=== PATIENT | male | born 1950 | race Caucasian/White ===

== ENCOUNTER 2020-11-24 11:31 | Emergency (ER) | payer MEDICARE ==
--- NOTE | 2020-11-24 12:35 | EDM.PDOC ---
ED HPI GENERAL MEDICAL PROBLEM - General Chief Complaint: Lower Extremity Injury/Pain Stated Complaint: GOUT Time Seen by Provider: 11/24/20 12:08 Source of Information: Reports: Patient History Limitations: Reports: No Limitations - History of Present Illness INITIAL COMMENTS - FREE TEXT/NARRATIVE: The patient presents with left foot swelling and gout flair. He has a history of gout and take allopurinol daily. He is not sure what triggered the attack. He does not drink and he watches what he eats. He was most concerned for an area of redness to the anterior ankle. He has no fever, chills, cough, chest pain, shortness of breath, abdominal pain, nausea or vomiting. Onset: Gradual Duration: Day(s): Location: Reports: Lower Extremity, Left (foot) Quality: Reports: Sharp Severity: Moderate Improves with: Reports: Immobilization Worsens with: Reports: Movement Context: Denies: Trauma Associated Symptoms: Reports: No Other Symptoms Left Foot Pain Score (Numeric/FACES): 10 - Related Data Allergies Allergy/AdvReac Type Severity Reaction Status Date / Time No Known Allergies Allergy Verified 11/24/20 12:02 Home Meds: Home Meds Hydrocodone/Acetaminophen [Hydrocodone-Acetamin 5-325 mg] 1 - 2 each PO Q6H PRN #10 tablet 11/24/20 [Rx] Past Medical History Cardiovascular History: Reports: Hypertension Musculoskeletal History: Reports: Gout Social & Family History - Tobacco Use Tobacco Use Status *Q: Never Tobacco User Second Hand Smoke Exposure: No - Caffeine Use Caffeine Use: Reports: Soda, Tea Review of Systems - Review of Systems Review Of Systems: See Below Constitutional: Reports: No Symptoms Eyes: Reports: No Symptoms Ears: Reports: No Symptoms Nose: Reports: No Symptoms Mouth/Throat: Reports: No Symptoms Respiratory: Reports: No Symptoms Cardiovascular: Reports: No Symptoms GI/Abdominal: Reports: No Symptoms Genitourinary: Reports: No Symptoms Musculoskeletal: Reports: Foot Pain (swelling and pain) ED EXAM, GENERAL - Physical Exam Exam: See Below Exam Limited By: No Limitations General Appearance: Alert, No Apparent Distress Ears: Normal External Exam Nose: Normal Inspection Head: Atraumatic, Normocephalic Neck: Normal Inspection Respiratory/Chest: No Respiratory Distress Extremities: Other (Mild edema and pain upon palpation to the ball of his foot. No erythema noted. There is some vericose veins with petichae around them to the left anterior ankle.) Course - Vital Signs Last Recorded V/S: Last Vital Signs Temp 98.8 F 11/24/20 11:58 Pulse 94 11/24/20 11:58 Resp 18 11/24/20 11:58 BP 174/105 H 11/24/20 11:58 Pulse Ox 100 11/24/20 11:58 - Re-Assessments/Exams Free Text/Narrative Re-Assessment/Exam: 11/24/20 12:35 I will give him something for pain. He did not want any steroids. Departure - Departure Time of Disposition: 12:35 Disposition: Home, Self-Care 01 Condition: Good Clinical Impression: Gout attack Qualifiers: Gout site: foot Gout etiology: other secondary cause Laterality: left Qualified Code(s): M10.472 - Other secondary gout, left ankle and foot - Discharge Information *PRESCRIPTION DRUG MONITORING PROGRAM REVIEWED*: Not Applicable *COPY OF PRESCRIPTION DRUG MONITORING REPORT IN PATIENT PETER: Not Applicable Prescriptions: Hydrocodone/Acetaminophen [Hydrocodone-Acetamin 5-325 mg] 1 - 2 each PO Q6H PRN #10 tablet PRN Reason: Pain Referrals: Kathy Trejo, [employer] [Primary Care Provider] - 1 Week Additional Instructions: Keep taking your medications as prescribed. Take motrin or aleve for pain. If that does not help, try the hydrocodone. Follow up with your doctor as needed. Please return if you are worse. Sepsis Event Note (ED) - Focused Exam Vital Signs: Vital Signs Temp Pulse Resp BP Pulse Ox 11/24/20 11:58 98.8 F 94 18 174/105 H 100
== END 2020-11-24 12:50 | disposition home or self-care (01) ==
LOC: JD.ED 11:31
DX: M10.472 Other secondary gout, left ankle and foot (principal); I10 Essential (primary) hypertension
CPT/HCPCS: 99283

== ENCOUNTER 2021-05-08 08:45 | Emergency (ER) | payer MEDICARE | END 2021-05-08 11:35 | disposition home or self-care (01) | LOC: JD.ED 08:45 | DX: L03.115 Cellulitis of right lower limb (principal); I87.2 Venous insufficiency (chronic) (peripheral); I10 Essential (primary) hypertension; M10.9 Gout, unspecified; Z79.899 Other long term (current) drug therapy; Z87.891 Personal history of nicotine dependence | CPT/HCPCS: 36415; 80053; 85025; 85610; 93970; 93970-26; 99284-25 ==

== ENCOUNTER 2021-10-01 10:42 | Emergency (ER) | payer MEDICARE ==
[2021-10-01] MEDS ORDERED: Sodium Chloride 0.9% 10 ML Syringe FLUSH PRN (11:50)
[2021-10-01] MEDS ORDERED: Sodium Chloride 0.9% 1,000 ML IV STA (12:54)
[2021-10-01] MEDS ORDERED: cefTRIAXone 2 GM in Sodium Chloride 0.9% 100 ML IV ONE (12:58)
[2021-10-01 13:14] LABS: ESTIMATED GFR 54 mL/min (>60)
== END 2021-10-01 14:36 | disposition home or self-care (01) ==
LOC: JD.ED 10:42
DX: N39.0 Urinary tract infection, site not specified (principal); L30.9 Dermatitis, unspecified; I10 Essential (primary) hypertension; Z79.899 Other long term (current) drug therapy
CPT/HCPCS: 36415; 51798; 80053; 81001; 83605; 85007; 85027; 85610; 86140; 87040; 87086; 87088; 87186; 96361; 96365; 99283; J0696; J3490; J7030

== ENCOUNTER 2022-01-10 10:40 | Emergency (ER) | payer MEDICARE ==
[2022-01-10] MEDS ORDERED: diphenhydrAMINE 50 MG/ML SDV IM ONE (11:09)
[2022-01-10] MEDS ORDERED: Dexamethasone 10 MG/ML SDV IM ONE (11:09)
== END 2022-01-10 11:57 | disposition home or self-care (01) ==
LOC: JD.ED 10:40
DX: L25.9 Unspecified contact dermatitis, unspecified cause (principal); I10 Essential (primary) hypertension; Z79.899 Other long term (current) drug therapy
CPT/HCPCS: 96372; 99282; J1100; J1200

== ENCOUNTER 2022-08-09 12:37 | Emergency (ER) | payer OTHER, MEDICARE ==
[2022-08-09] MEDS ORDERED: Acetaminophen/oxyCODONE 325-5 MG Tab PO ONE ×2 (13:05→13:50)
[2022-08-09] MEDS ORDERED: Ondansetron 4 MG Tab.DIS PO ONE (13:07)
[2022-08-09] MEDS ORDERED: Lidocaine 1% 10 ML MDV INJECT ONE (13:48)
== END 2022-08-09 14:30 | disposition home or self-care (01) ==
LOC: JD.ED 12:37
DX: S06.5X0A Traumatic subdural hemorrhage without loss of consciousness, initial encounter (principal); S01.01XA Laceration without foreign body of scalp, initial encounter; I10 Essential (primary) hypertension; Z79.899 Other long term (current) drug therapy; W10.1XXA Fall (on)(from) sidewalk curb, initial encounter
CPT/HCPCS: 12002; 70450; 73030; 93005; 99284; A9270; 93010; 99283; J3490

== ENCOUNTER 2024-04-10 10:11 | Emergency (ER) | payer MEDICAID, MEDICARE ==
[2024-04-10 11:52] LABS: BASOPHILS ABSOLUTE AUTO 0.1 K/mm3 (0.0-0.2); BASOPHILS PERCENT AUTO 0.6 % (0.0-1.0); EOSINOPHILS ABSOLUTE AUTO 0.3 K/mm3 (0.0-0.4); EOSINOPHILS PERCENT AUTO 3.1 % (0.0-6.0); HEMATOCRIT 39.2 % (42.0-52.0); HEMOGLOBIN 12.2 gm/dl (14.0-18.0); IMMATURE GRAN ABSOLUTE AUTO 0.03 K/mm3 (0.00-0.05); IMMATURE GRAN PERCENT AUTO 0.3 % (0.0-0.4); LYMPHOCYTES ABSOLUTE AUTO 1.1 K/mm3 (1.0-4.8); LYMPHOCYTES PERCENT AUTO 12.8 % (24.0-44.0); MEAN CORPUSCULAR HEMOGLOBIN 29.8 pg (28.0-32.0); MEAN CORPUSCULAR HGB CONC 31.1 g/dl (32.0-36.0); MEAN CORPUSCULAR VOLUME 95.8 fl (83.0-99.0); MEAN PLATELET VOLUME 10.8 fl (9.4-12.4); MONOCYTES PERCENT AUTO 11.7 % (0.0-8.0); NEUTROPHILS ABSOLUTE AUTO 6.3 K/mm3 (1.8-7.7); NEUTROPHILS PERCENT AUTO 71.5 % (41.0-71.0); PLATELET COUNT,PLT 130 K/mm3 (150-400); RED BLOOD CELL COUNT 4.09 M/mm3 (4.52-5.90); WHITE BLOOD CELL COUNT,WBC 8.81 K/mm3 (3.9-11.3)
[2024-04-10 12:09] LABS: INR 1.04
[2024-04-10 12:11] LABS: PTT,PARTIAL THROMBOPLSTIN TIME 26.8 SECONDS (21.7-31.4)
[2024-04-10] MEDS: cefTRIAXone 2 GM Vial IVPUSH ONE (12:20)
[2024-04-10 12:47] LABS: A/G RATIO 0.7 (1-2); ALBUMIN 2.7 g/dl (3.4-5.0); ANION GAP 15.2 (5-15); BILIRUBIN TOTAL 0.6 mg/dL (0.2-1.0); BUN/CREATININE RATIO 14.3 (14-18); CALCIUM 8.8 mg/dL (8.5-10.1); CREATININE 2.3 mg/dL (0.7-1.3); EST CRCL DRUG DOSING (CG) 26.58 mL/min; POTASSIUM,K 4.2 mEq/L (3.5-5.1); PROTEIN TOTAL,TP 6.8 g/dl (6.4-8.2)
[2024-04-10 13:06] LABS: LACTIC ACID 1.2 mmol/L (0.4-2.0)
== END 2024-04-10 13:55 | disposition left against medical advice (07) ==
LOC: JD.ED 10:11
DX: L03.115 Cellulitis of right lower limb (principal); L03.116 Cellulitis of left lower limb; I13.0 Hypertensive heart and chronic kidney disease with heart failure and stage 1 through stage 4 chronic kidney disease, or unspecified chronic kidney disease; I50.9 Heart failure, unspecified; N18.9 Chronic kidney disease, unspecified; Z79.899 Other long term (current) drug therapy
CPT/HCPCS: 36415; 71045; 80053; 83605; 83880; 84484; 85025; 85610; 85730; 87040; 87428; 93005; 96374; 99285; J0696

== ENCOUNTER 2024-04-23 15:21 | Inpatient (IN) | payer MEDICARE, MEDICAID ==
[2024-04-23 16:28] LABS: BASOPHILS PERCENT AUTO 0.5 % (0.0-1.0); EOSINOPHILS ABSOLUTE AUTO 0.3 K/mm3 (0.0-0.4); EOSINOPHILS PERCENT AUTO 3.3 % (0.0-6.0); HEMATOCRIT 43.9 % (42.0-52.0); HEMOGLOBIN 13.3 gm/dl (14.0-18.0); IMMATURE GRAN ABSOLUTE AUTO 0.03 K/mm3 (0.00-0.05); IMMATURE GRAN PERCENT AUTO 0.4 % (0.0-0.4); LYMPHOCYTES ABSOLUTE AUTO 1.4 K/mm3 (1.0-4.8); LYMPHOCYTES PERCENT AUTO 18.4 % (24.0-44.0); MEAN CORPUSCULAR HGB CONC 30.3 g/dl (32.0-36.0); MEAN CORPUSCULAR VOLUME 95.6 fl (83.0-99.0); MEAN PLATELET VOLUME 9.8 fl (9.4-12.4); MONOCYTES ABSOLUTE AUTO 0.8 K/mm3 (0.0-0.8); MONOCYTES PERCENT AUTO 10.1 % (0.0-8.0); NEUTROPHILS ABSOLUTE AUTO 5.3 K/mm3 (1.8-7.7); NEUTROPHILS PERCENT AUTO 67.3 % (41.0-71.0); RED BLOOD CELL COUNT 4.59 M/mm3 (4.52-5.90); WHITE BLOOD CELL COUNT,WBC 7.84 K/mm3 (3.9-11.3)
[2024-04-23 16:32] LABS: PLATELET COUNT,PLT 209 K/mm3 (150-400)
[2024-04-23 16:49] LABS: A/G RATIO 0.6 (1-2); ALANINE AMINOTRANSFERASE,ALT 31 U/L (16-63); ALBUMIN 2.5 g/dl (3.4-5.0); ALKALINE PHOSPHATASE 103 U/L (46-116); ANION GAP 12.2 (5-15); ASPARTATE AMNIOTRANSFERASE,AST 48 U/L (15-37); BILIRUBIN TOTAL 0.3 mg/dL (0.2-1.0); BLOOD UREA NITROGEN,BUN 29 mg/dL (7-18); BUN/CREATININE RATIO 15.3 (14-18); CALCIUM 8.4 mg/dL (8.5-10.1); CARBON DIOXIDE,CO2 29 mEq/L (21-32); CHLORIDE,CL 106 mEq/L (98-107); CREATININE 1.9 mg/dL (0.7-1.3); ESTIMATED GFR 37 mL/min (>60); GLUCOSE RANDOM 118 mg/dL (70-99); MAGNESIUM 1.7 mg/dL (1.8-2.4); POTASSIUM,K 4.2 mEq/L (3.5-5.1); PROTEIN TOTAL,TP 6.4 g/dl (6.4-8.2); SODIUM,NA 143 mEq/L (136-145); TROPONIN I HIGH SENSITIVITY 24 pg/mL (<=76)
[2024-04-23] MEDS: cefTRIAXone 2 GM Vial IVPUSH ONE (17:56)
[2024-04-23] MEDS: Sodium Chloride 0.9% 10 ML Syringe FLUSH PRN (17:56)
[2024-04-23 18:02] LABS: APPEARANCE,URINE CLEAR (Clear); BILIRUBIN,URINE NEGATIVE (Negative); COLOR,URINE YELLOW (Yellow); GLUCOSE,URINE NEGATIVE (Negative); KETONES,URINE TRACE (Negative); LEUKOCYTE ESTERASE,URINE NEGATIVE (Negative); NITRITE,URINE NEGATIVE (Negative); OCCULT BLOOD,URINE NEGATIVE (Negative); PROTEIN,URINE 2+ (Negative); UROBILINOGEN,URINE 0.2 (0.2-1.0)
[2024-04-23] MEDS: Metoprolol Tartrate 5 MG/5 ML SDV IVPUSH ONE (18:09)
[2024-04-23] MEDS: Bacitracin Oint 15 GM Tube TOP ONE (18:09)
[2024-04-23] MEDS: fentaNYL 100 MCG/2 ML SDV IVPUSH ONE (18:09)
[2024-04-23 18:41] LABS: RBC,URINE 0-5 /hpf (0-5)
[2024-04-23 18:42] LABS: BACTERIA,URINE NOT SEEN /hpf (FEW); EPITHELIAL CELLS,URINE 0-5 /hpf (0-5); MUCUS,URINE NOT SEEN /hpf (FEW); WBC,URINE NOT SEEN /hpf (0-5)
[2024-04-23] MEDS: Furosemide 40 MG/4 ML VIAL IVPUSH ONE (18:55)
[2024-04-23] MEDS ORDERED: Sennosides/Docusate Sodium 50-8.6 MG Tab PO PRN (22:07)
[2024-04-23] MEDS ORDERED: Acetaminophen 325 MG Tab PO PRN (22:07)
[2024-04-23] MEDS ORDERED: Melatonin 3 MG Tab PO PRN (22:07)
[2024-04-23] MEDS: oxyCODONE 5 MG Tab PO PRN (22:48)
[2024-04-23] MEDS: Heparin Sodium 5,000 Units/ML Vial SUBCUT SCH (22:50)
[2024-04-24 05:30] LABS: BASOPHILS PERCENT AUTO 0.5 % (0.0-1.0); EOSINOPHILS ABSOLUTE AUTO 0.4 K/mm3 (0.0-0.4); EOSINOPHILS PERCENT AUTO 5.8 % (0.0-6.0); HEMATOCRIT 42.1 % (42.0-52.0); HEMOGLOBIN 12.9 gm/dl (14.0-18.0); IMMATURE GRAN ABSOLUTE AUTO 0.02 K/mm3 (0.00-0.05); IMMATURE GRAN PERCENT AUTO 0.3 % (0.0-0.4); LYMPHOCYTES ABSOLUTE AUTO 1.9 K/mm3 (1.0-4.8); MEAN CORPUSCULAR HEMOGLOBIN 28.9 pg (28.0-32.0); MEAN CORPUSCULAR HGB CONC 30.6 g/dl (32.0-36.0); MEAN CORPUSCULAR VOLUME 94.4 fl (83.0-99.0); MEAN PLATELET VOLUME 9.6 fl (9.4-12.4); MONOCYTES ABSOLUTE AUTO 0.7 K/mm3 (0.0-0.8); MONOCYTES PERCENT AUTO 9.5 % (0.0-8.0); NEUTROPHILS ABSOLUTE AUTO 4.3 K/mm3 (1.8-7.7); NEUTROPHILS PERCENT AUTO 57.9 % (41.0-71.0); PLATELET COUNT,PLT 174 K/mm3 (150-400); RED BLOOD CELL COUNT 4.46 M/mm3 (4.52-5.90); WHITE BLOOD CELL COUNT,WBC 7.46 K/mm3 (3.9-11.3)
[2024-04-24 05:56] LABS: A/G RATIO 0.6 (1-2); ALBUMIN 2.4 g/dl (3.4-5.0); ANION GAP 7.5 (5-15); BILIRUBIN TOTAL 0.3 mg/dL (0.2-1.0); BUN/CREATININE RATIO 18.7 (14-18); CALCIUM 8.3 mg/dL (8.5-10.1); CREATININE 1.5 mg/dL (0.7-1.3); EST CRCL DRUG DOSING (CG) 40.76 mL/min; MAGNESIUM 1.8 mg/dL (1.8-2.4); PHOSPHORUS 2.9 mg/dL (2.6-4.7); POTASSIUM,K 3.5 mEq/L (3.5-5.1); PROTEIN TOTAL,TP 6.2 g/dl (6.4-8.2)
[2024-04-24] MEDS: diphenhydrAMINE 50 MG/ML SDV IVPUSH ONE (05:59)
[2024-04-24] MEDS ORDERED: Ondansetron 4 MG/2 ML SDV IV PRN (08:06)
[2024-04-24] MEDS: Bumetanide 1 MG/4 ML MDV IVPUSH ONE (08:11)
[2024-04-24] MEDS: Metoprolol Succinate 25 MG Tab.ER PO SCH (08:13)
[2024-04-24] MEDS: Potassium Chloride 20 MEQ Tab.ER PO SCH (10:31)
[2024-04-24] MEDS: Magnesium Sulf/Wat 2 GM/50 mL 2 GM in Premix Bag 1 BAG IV ONE (10:31)
[2024-04-25 05:00] LABS: BASOPHILS PERCENT AUTO 0.5 % (0.0-1.0); EOSINOPHILS ABSOLUTE AUTO 0.5 K/mm3 (0.0-0.4); EOSINOPHILS PERCENT AUTO 6.5 % (0.0-6.0); HEMATOCRIT 44.8 % (42.0-52.0); HEMOGLOBIN 13.3 gm/dl (14.0-18.0); IMMATURE GRAN ABSOLUTE AUTO 0.03 K/mm3 (0.00-0.05); IMMATURE GRAN PERCENT AUTO 0.4 % (0.0-0.4); LYMPHOCYTES ABSOLUTE AUTO 2.2 K/mm3 (1.0-4.8); LYMPHOCYTES PERCENT AUTO 27.6 % (24.0-44.0); MEAN CORPUSCULAR HEMOGLOBIN 28.9 pg (28.0-32.0); MEAN CORPUSCULAR HGB CONC 29.7 g/dl (32.0-36.0); MEAN CORPUSCULAR VOLUME 97.4 fl (83.0-99.0); MEAN PLATELET VOLUME 9.7 fl (9.4-12.4); MONOCYTES ABSOLUTE AUTO 0.7 K/mm3 (0.0-0.8); MONOCYTES PERCENT AUTO 9.1 % (0.0-8.0); NEUTROPHILS ABSOLUTE AUTO 4.4 K/mm3 (1.8-7.7); NEUTROPHILS PERCENT AUTO 55.9 % (41.0-71.0); PLATELET COUNT,PLT 182 K/mm3 (150-400); WHITE BLOOD CELL COUNT,WBC 7.82 K/mm3 (3.9-11.3)
[2024-04-25 06:09] LABS: A/G RATIO 0.7 (1-2); ALBUMIN 2.6 g/dl (3.4-5.0); ANION GAP 11.7 (5-15); BILIRUBIN TOTAL 0.3 mg/dL (0.2-1.0); BUN/CREATININE RATIO 19.3 (14-18); CALCIUM 9.1 mg/dL (8.5-10.1); CREATININE 1.4 mg/dL (0.7-1.3); EST CRCL DRUG DOSING (CG) 43.67 mL/min; MAGNESIUM 2.4 mg/dL (1.8-2.4); POTASSIUM,K 4.7 mEq/L (3.5-5.1); PROTEIN TOTAL,TP 6.6 g/dl (6.4-8.2)
[2024-04-25] MEDS: Bumetanide 1 MG/4 ML MDV IVPUSH ONE (08:36)
[2024-04-25] MEDS ORDERED: Sodium Chloride 0.9% 10 ML Syringe FLUSH PRN (11:52)
[2024-04-25] MEDS: Iopamidol 755 Mg/ML 100 ML Bottle IVPUSH ONE (13:13)
[2024-04-25] MEDS: Sodium Chloride 0.9% 100 ML IV SCH (13:13)
[2024-04-25] MEDS: diphenhydrAMINE 25 MG Cap PO PRN (17:14)
[2024-04-26 05:51] LABS: BASOPHILS ABSOLUTE AUTO 0.1 K/mm3 (0.0-0.2); BASOPHILS PERCENT AUTO 0.5 % (0.0-1.0); EOSINOPHILS ABSOLUTE AUTO 0.5 K/mm3 (0.0-0.4); EOSINOPHILS PERCENT AUTO 4.6 % (0.0-6.0); HEMATOCRIT 44.1 % (42.0-52.0); HEMOGLOBIN 13.2 gm/dl (14.0-18.0); IMMATURE GRAN ABSOLUTE AUTO 0.04 K/mm3 (0.00-0.05); IMMATURE GRAN PERCENT AUTO 0.4 % (0.0-0.4); LYMPHOCYTES PERCENT AUTO 20.5 % (24.0-44.0); MEAN CORPUSCULAR HEMOGLOBIN 28.7 pg (28.0-32.0); MEAN CORPUSCULAR HGB CONC 29.9 g/dl (32.0-36.0); MEAN CORPUSCULAR VOLUME 95.9 fl (83.0-99.0); MEAN PLATELET VOLUME 11.1 fl (9.4-12.4); MONOCYTES PERCENT AUTO 10.2 % (0.0-8.0); NEUTROPHILS ABSOLUTE AUTO 6.3 K/mm3 (1.8-7.7); NEUTROPHILS PERCENT AUTO 63.8 % (41.0-71.0); PLATELET COUNT,PLT 170 K/mm3 (150-400)
[2024-04-26 06:39] LABS: A/G RATIO 0.6 (1-2); ALBUMIN 2.6 g/dl (3.4-5.0); ANION GAP 12.3 (5-15); BILIRUBIN TOTAL 0.4 mg/dL (0.2-1.0); BUN/CREATININE RATIO 13.3 (14-18); CALCIUM 8.8 mg/dL (8.5-10.1); CREATININE 1.5 mg/dL (0.7-1.3); EST CRCL DRUG DOSING (CG) 40.76 mL/min; MAGNESIUM 2.2 mg/dL (1.8-2.4); POTASSIUM,K 4.3 mEq/L (3.5-5.1); PROTEIN TOTAL,TP 6.7 g/dl (6.4-8.2)
== END 2024-04-26 13:30 | disposition home or self-care (01) | DRG 291 ==
LOC: JD.ED 15:21 → JD.MS 18:30
PROVIDERS: ADMIT Student in an Organized Health Care Education/Training Program; ATTEND Family Medicine
DX: I11.0 Hypertensive heart disease with heart failure (principal); I13.0 Hypertensive heart and chronic kidney disease with heart failure and stage 1 through stage 4 chronic kidney disease, or unspecified chronic kidney disease; I50.33 Acute on chronic diastolic (congestive) heart failure; E87.20 Acidosis, unspecified; Z68.41 Body mass index [BMI] 40.0-44.9, adult; N17.9 Acute kidney failure, unspecified; I25.10 Atherosclerotic heart disease of native coronary artery without angina pectoris; M19.90 Unspecified osteoarthritis, unspecified site; M54.9 Dorsalgia, unspecified; M10.9 Gout, unspecified; G89.4 Chronic pain syndrome; E66.01 Morbid (severe) obesity due to excess calories; E66.813 Obesity, class 3; R73.03 Prediabetes; I08.3 Combined rheumatic disorders of mitral, aortic and tricuspid valves; I87.2 Venous insufficiency (chronic) (peripheral); E83.42 Hypomagnesemia; N18.31 Chronic kidney disease, stage 3a; R26.2 Difficulty in walking, not elsewhere classified; E88.09 Other disorders of plasma-protein metabolism, not elsewhere classified; Z96.659 Presence of unspecified artificial knee joint; Z90.49 Acquired absence of other specified parts of digestive tract; Z79.899 Other long term (current) drug therapy; Z87.891 Personal history of nicotine dependence
CPT/HCPCS: 36415; 71045; 71045-26; 75635; 75635-26; 80053; 81001; 83605; 83735; 83880; 84100; 84484; 85025; 86140; 87040; 93005; 93010; 93306; 93970; 93970-26; 94760; 94761; 96374; 96375; 97110-GP; 97116-GP; 97162-GP; 97166-GO; 97530-GP; 97535-GO; 99285; 99285-25; A9270-GY; J0696; J1200; J1644; J1940; J3010; J3475; J3490; Q9967

== ENCOUNTER 2024-07-26 10:46 | Inpatient (IN) | payer MEDICARE, MEDICAID ==
[2024-07-26] MEDS: Sodium Chloride 0.9% 3,000 ML IV SCH (12:13)
[2024-07-26] MEDS: Cefepime 2 GM Vial IVPUSH ONE (12:24)
[2024-07-26] MEDS: VANCOmycin 2 GM/400 ML 2 GM in Premix Bag 1 BAG IV ONE (12:31)
[2024-07-26 12:42] LABS: BASOPHILS PERCENT AUTO 0.2 % (0.0-1.0); HEMATOCRIT 35.9 % (42.0-52.0); IMMATURE GRAN ABSOLUTE AUTO 0.15 K/mm3 (0.00-0.05); LYMPHOCYTES ABSOLUTE AUTO 0.5 K/mm3 (1.0-4.8); LYMPHOCYTES PERCENT AUTO 3.1 % (24.0-44.0); MEAN CORPUSCULAR HEMOGLOBIN 28.4 pg (28.0-32.0); MEAN CORPUSCULAR HGB CONC 32.3 g/dl (32.0-36.0); MONOCYTES ABSOLUTE AUTO 1.3 K/mm3 (0.0-0.8); MONOCYTES PERCENT AUTO 8.6 % (0.0-8.0); NEUTROPHILS ABSOLUTE AUTO 13.1 K/mm3 (1.8-7.7); NEUTROPHILS PERCENT AUTO 87.1 % (41.0-71.0); NRBC ABSOLUTE 0.02 (0.00-0.02); NRBC PERCENT 0.1 % (0.0-0.2); PLATELET COUNT,PLT 122 K/mm3 (150-400); RED BLOOD CELL COUNT 4.08 M/mm3 (4.52-5.90); WHITE BLOOD CELL COUNT,WBC 15.06 K/mm3 (3.9-11.3)
[2024-07-26 12:49] LABS: HEMOGLOBIN 11.6 gm/dl (14.0-18.0)
[2024-07-26 13:13] LABS: A/G RATIO 0.8 (1-2); ALBUMIN 3.1 g/dl (3.4-5.0); ANION GAP 14.2 (5-15); BILIRUBIN TOTAL 1.2 mg/dL (0.2-1.0); BUN/CREATININE RATIO 32.2 (14-18); C-REACTIVE PROTEIN 13.93 mg/dL (<0.30); CALCIUM 8.8 mg/dL (8.5-10.1); CREATININE 2.7 mg/dL (0.7-1.3); EST CRCL DRUG DOSING (CG) 22.32 mL/min; MAGNESIUM 2.2 mg/dL (1.8-2.4); POTASSIUM,K 4.2 mEq/L (3.5-5.1); PROTEIN TOTAL,TP 7.2 g/dl (6.4-8.2)
[2024-07-26 14:37] LABS: APPEARANCE,URINE CLEAR (Clear); BILIRUBIN,URINE NEGATIVE (Negative); COLOR,URINE YELLOW (Yellow); GLUCOSE,URINE NEGATIVE (Negative); KETONES,URINE TRACE (Negative); LEUKOCYTE ESTERASE,URINE NEGATIVE (Negative); NITRITE,URINE NEGATIVE (Negative); OCCULT BLOOD,URINE 1+ (Negative); PH,URINE 5.5 (5.0-8.0); PROTEIN,URINE 1+ (Negative); UROBILINOGEN,URINE 0.2 (0.2-1.0)
[2024-07-26 15:07] LABS: SQUAMOUS EPITHELIAL CELLS,UR 0-5 /hpf (0-5); WBC,URINE 0-5 /hpf (0-5)
[2024-07-26 15:15] LABS: BACTERIA,URINE FEW /hpf (FEW); MUCUS,URINE FEW /hpf (FEW)
[2024-07-26 15:23] LABS: BARBITURATE SCREEN,URINE NEGATIVE (CUTOFF=200); BENZODIAZEPINES SCREEN,URINE NEGATIVE (CUTOFF=150); BUPRENORPHINE SCREEN,URINE NEGATIVE (CUTOFF=10); METHADONE SCREEN, URINE NEGATIVE (CUT0FF=200); METHAMPHETAMINES SCREEN, URINE NEGATIVE (CUTOFF=500); OXYCODONE SCREEN,URINE PRESUMPTIVE POSITIVE (CUT0FF=100); THC SCREEN,URINE 20 NG/ML NEGATIVE (CUTOFF=50)
[2024-07-26 15:43] LABS: AMPHETAMINES SCREEN, URINE NEGATIVE (CUTOFF=500)
[2024-07-26] MEDS ORDERED: Naloxone 0.4 MG/ML SDV IVPUSH PRN (16:10)
[2024-07-26] MEDS: Thiamine 200 MG/2 ML MDV IVPUSH ONE (16:42)
[2024-07-26] MEDS: Folic Acid 1 MG Tab PO ONE (16:42)
[2024-07-26] MEDS: HYDROmorphone 0.5 MG/0.5 ML Syringe IVPUSH ONE (16:43)
[2024-07-26] MEDS ORDERED: Acetaminophen 325 MG Tab PO PRN (16:46)
[2024-07-26] MEDS ORDERED: Ondansetron 4 MG/2 ML SDV IV PRN (16:46)
[2024-07-26] MEDS: Multivitamins with Minerals/Folic Acid/Lutein/Zeaxanth Tab PO STA (16:53)
[2024-07-26] MEDS: HYDROmorphone 1 MG/ML Syringe IVPUSH ONE (17:10)
[2024-07-26] MEDS: Metoprolol Succinate 50 MG Tab.ER PO STA (18:41)
[2024-07-26] MEDS: Bumetanide 1 MG/4 ML MDV IVPUSH ONE (18:41)
[2024-07-26] MEDS ORDERED: Cefepime 2 GM Vial IVPUSH SCH (19:45)
[2024-07-26] MEDS: Heparin Sodium 5,000 Units/ML Vial SUBCUT SCH (20:08)
[2024-07-26] MEDS: HYDROmorphone 0.5 MG/0.5 ML Syringe IVPUSH PRN (20:10)
[2024-07-26] MEDS: oxyCODONE 5 MG Tab PO PRN (22:21)
[2024-07-27 04:17] LABS: BASOPHILS PERCENT AUTO 0.1 % (0.0-1.0); HEMATOCRIT 37.6 % (42.0-52.0); HEMOGLOBIN 11.6 gm/dl (14.0-18.0); IMMATURE GRAN ABSOLUTE AUTO 0.17 K/mm3 (0.00-0.05); LYMPHOCYTES ABSOLUTE AUTO 0.6 K/mm3 (1.0-4.8); LYMPHOCYTES PERCENT AUTO 3.7 % (24.0-44.0); MEAN CORPUSCULAR HGB CONC 30.9 g/dl (32.0-36.0); MEAN CORPUSCULAR VOLUME 90.8 fl (83.0-99.0); MONOCYTES ABSOLUTE AUTO 1.3 K/mm3 (0.0-0.8); MONOCYTES PERCENT AUTO 7.8 % (0.0-8.0); NEUTROPHILS ABSOLUTE AUTO 14.3 K/mm3 (1.8-7.7); NEUTROPHILS PERCENT AUTO 87.4 % (41.0-71.0); NRBC ABSOLUTE 0.02 (0.00-0.02); NRBC PERCENT 0.1 % (0.0-0.2); PLATELET COUNT,PLT 109 K/mm3 (150-400); RED BLOOD CELL COUNT 4.14 M/mm3 (4.52-5.90); WHITE BLOOD CELL COUNT,WBC 16.31 K/mm3 (3.9-11.3)
[2024-07-27 05:00] LABS: A/G RATIO 0.6 (1-2); ALBUMIN 2.5 g/dl (3.4-5.0); BUN/CREATININE RATIO 32.5 (14-18); CALCIUM 9.2 mg/dL (8.5-10.1); EST CRCL DRUG DOSING (CG) 30.13 mL/min; PROTEIN TOTAL,TP 6.7 g/dl (6.4-8.2)
[2024-07-27 05:08] LABS: C-REACTIVE PROTEIN 24.5 mg/dL (<0.30)
[2024-07-27] MEDS: Bumetanide 1 MG/4 ML MDV IVPUSH SCH (05:22)
[2024-07-27] MEDS: Metoprolol Tartrate 5 MG/5 ML SDV IVPUSH ONE (07:44)
[2024-07-27] MEDS ORDERED: Metoprolol Tartrate 5 MG/5 ML SDV IVPUSH SCH (07:45)
[2024-07-27] MEDS ORDERED: Metoprolol Tartrate 5 MG in Sodium Chloride 0.9% 50 ML IV ONE (07:45)
[2024-07-27] MEDS: Folic Acid 1 MG Tab PO SCH (07:59)
[2024-07-27] MEDS: Cefepime 1 GM Vial IV SCH (07:59)
[2024-07-27] MEDS: Doxycycline 100 MG in Sodium Chloride 0.9% 100 ML IV SCH (07:59)
[2024-07-27] MEDS: Thiamine 100 MG Tab PO SCH (07:59)
[2024-07-27] MEDS: Multivitamin Tab PO SCH (07:59)
[2024-07-27] MEDS: Metoprolol Succinate 50 MG Tab.ER PO SCH (08:04)
[2024-07-27] MEDS: LORazepam 2 MG/ML SDV IVPUSH ONE (09:53)
[2024-07-27] MEDS: Sodium Chloride 0.9% 1,000 ML IV SCH (11:25)
[2024-07-27] MEDS: VANCOmycin 1 GM in Sodium Chloride 0.9% 250 ML IV SCH (12:59)
[2024-07-27] MEDS: oxyCODONE 5 MG Tab PO SCH (14:12)
[2024-07-27] MEDS ORDERED: Acetaminophen 325 MG Tab PO PRN (14:59)
[2024-07-27] MEDS: Albuterol/Ipratropium 3.0-0.5 MG/3 ML Neb Soln NEB PRN (17:32)
[2024-07-27] MEDS: chlordiazePOXIDE 25 MG Cap PO ONE (17:40)
[2024-07-27] MEDS: Cefepime 2 GM Vial IVPUSH SCH (20:26)
[2024-07-27] MEDS: guaiFENesin 600 MG Tab.ER PO SCH (20:27)
[2024-07-27] MEDS: LORazepam 2 MG/ML SDV IV PRN (22:09)
[2024-07-28 04:32] LABS: BASOPHILS PERCENT AUTO 0.1 % (0.0-1.0); EOSINOPHILS PERCENT AUTO 0.1 % (0.0-6.0); HEMOGLOBIN 10.8 gm/dl (14.0-18.0); IMMATURE GRAN ABSOLUTE AUTO 0.09 K/mm3 (0.00-0.05); IMMATURE GRAN PERCENT AUTO 0.6 % (0.0-0.4); LYMPHOCYTES ABSOLUTE AUTO 0.9 K/mm3 (1.0-4.8); LYMPHOCYTES PERCENT AUTO 6.6 % (24.0-44.0); MEAN CORPUSCULAR HEMOGLOBIN 28.3 pg (28.0-32.0); MEAN CORPUSCULAR HGB CONC 30.9 g/dl (32.0-36.0); MEAN CORPUSCULAR VOLUME 91.6 fl (83.0-99.0); MEAN PLATELET VOLUME 9.6 fl (9.4-12.4); MONOCYTES ABSOLUTE AUTO 1.3 K/mm3 (0.0-0.8); NEUTROPHILS ABSOLUTE AUTO 11.8 K/mm3 (1.8-7.7); NEUTROPHILS PERCENT AUTO 83.6 % (41.0-71.0); PLATELET COUNT,PLT 92 K/mm3 (150-400); RED BLOOD CELL COUNT 3.82 M/mm3 (4.52-5.90); WHITE BLOOD CELL COUNT,WBC 14.13 K/mm3 (3.9-11.3)
[2024-07-28 04:55] LABS: A/G RATIO 0.5 (1-2); ALBUMIN 1.9 g/dl (3.4-5.0); ALKALINE PHOSPHATASE 91 U/L (46-116); ANION GAP 11.6 (5-15); ASPARTATE AMNIOTRANSFERASE,AST 56 U/L (15-37); BLOOD UREA NITROGEN,BUN 58 mg/dL (7-18); BUN/CREATININE RATIO 30.5 (14-18); CALCIUM 8.7 mg/dL (8.5-10.1); CARBON DIOXIDE,CO2 26 mEq/L (21-32); CHLORIDE,CL 105 mEq/L (98-107); CREATINE KINASE,CK 207 U/L (39-308); CREATININE 1.9 mg/dL (0.7-1.3); EST CRCL DRUG DOSING (CG) 31.71 mL/min; ESTIMATED GFR 37 mL/min (>60); GLUCOSE RANDOM 132 mg/dL (70-99); POTASSIUM,K 3.6 mEq/L (3.5-5.1); PROTEIN TOTAL,TP 5.9 g/dl (6.4-8.2); SODIUM,NA 139 mEq/L (136-145)
[2024-07-28 05:12] LABS: C-REACTIVE PROTEIN > 25.00 mg/dL (<0.30)
[2024-07-28] MEDS: Bumetanide 1 MG/4 ML MDV IVPUSH SCH (05:28)
[2024-07-28] MEDS: Sodium Chloride 0.9% 1,000 ML IV SCH (05:28)
[2024-07-28 05:31] LABS: ALANINE AMINOTRANSFERASE,ALT 100 U/L (16-63)
[2024-07-28 05:47] LABS: PCO2 ARTERIAL 46.7 mmHg (35.0-45.0)
[2024-07-28 06:29] LABS: SLIDE REVIEW ABNORMAL SMEAR
[2024-07-28] MEDS: chlordiazePOXIDE 25 MG Cap PO SCH (12:58)
[2024-07-28] MEDS ORDERED: Acetaminophen 325 MG Tab PO PRN (15:10)
[2024-07-28] MEDS: Dextrose 5%-0.45% NaCl 1,000 ML IV SCH (15:21)
[2024-07-28] MEDS: HYDROmorphone 0.5 MG/0.5 ML Syringe IVPUSH PRN (15:33)
[2024-07-28] MEDS: HYDROmorphone 0.5 MG/0.5 ML Syringe IVPUSH ONE (17:10)
[2024-07-28] MEDS: ceFAZolin 2 GM Vial IVPUSH SCH (20:19)
[2024-07-29 06:18] LABS: BASOPHILS PERCENT AUTO 0.2 % (0.0-1.0); EOSINOPHILS ABSOLUTE AUTO 0.2 K/mm3 (0.0-0.4); EOSINOPHILS PERCENT AUTO 1.7 % (0.0-6.0); HEMATOCRIT 35.6 % (42.0-52.0); HEMOGLOBIN 10.9 gm/dl (14.0-18.0); IMMATURE GRAN ABSOLUTE AUTO 0.06 K/mm3 (0.00-0.05); IMMATURE GRAN PERCENT AUTO 0.6 % (0.0-0.4); LYMPHOCYTES PERCENT AUTO 10.3 % (24.0-44.0); MEAN CORPUSCULAR HEMOGLOBIN 28.2 pg (28.0-32.0); MEAN CORPUSCULAR HGB CONC 30.6 g/dl (32.0-36.0); MEAN PLATELET VOLUME 10.4 fl (9.4-12.4); MONOCYTES ABSOLUTE AUTO 0.8 K/mm3 (0.0-0.8); MONOCYTES PERCENT AUTO 8.5 % (0.0-8.0); NEUTROPHILS ABSOLUTE AUTO 7.3 K/mm3 (1.8-7.7); NEUTROPHILS PERCENT AUTO 78.7 % (41.0-71.0); PLATELET COUNT,PLT 89 K/mm3 (150-400); RED BLOOD CELL COUNT 3.87 M/mm3 (4.52-5.90); WHITE BLOOD CELL COUNT,WBC 9.31 K/mm3 (3.9-11.3)
[2024-07-29 06:35] LABS: A/G RATIO 0.4 (1-2); ALANINE AMINOTRANSFERASE,ALT 76 U/L (16-63); ALBUMIN 1.6 g/dl (3.4-5.0); ALKALINE PHOSPHATASE 95 U/L (46-116); ASPARTATE AMNIOTRANSFERASE,AST 74 U/L (15-37); BILIRUBIN TOTAL 0.7 mg/dL (0.2-1.0); BLOOD UREA NITROGEN,BUN 53 mg/dL (7-18); BUN/CREATININE RATIO 29.4 (14-18); CALCIUM 9.3 mg/dL (8.5-10.1); CARBON DIOXIDE,CO2 28 mEq/L (21-32); CREATININE 1.8 mg/dL (0.7-1.3); EST CRCL DRUG DOSING (CG) 33.48 mL/min; ESTIMATED GFR 40 mL/min (>60); GLUCOSE RANDOM 169 mg/dL (70-99); PROTEIN TOTAL,TP 5.9 g/dl (6.4-8.2); SLIDE REVIEW ABNORMAL SMEAR
[2024-07-29 06:49] LABS: C-REACTIVE PROTEIN > 25.00 mg/dL (<0.30); CHLORIDE,CL 108 mEq/L (98-107); SODIUM,NA 144 mEq/L (136-145)
[2024-07-29] MEDS: LORazepam 2 MG/ML SDV IV PRN (08:15)
[2024-07-29] MEDS: Potassium Chloride 10 MEQ in Premix Bag 1 BAG IV SCH (08:16)
[2024-07-29] MEDS: PHENobarbitaL sodium 260 MG in Sodium Chloride 0.9% 100 ML IV ONE (08:58)
[2024-07-29] MEDS: Morphine 2 MG/ML SYRINGE IVPUSH PRN ×2 (10:14→18:20)
[2024-07-29] MEDS: Dextrose 5%-0.45% NaCl 1,000 ML IV SCH (11:04)
[2024-07-29] MEDS: Bumetanide 1 MG/4 ML MDV IVPUSH ONE (12:10)
[2024-07-29 13:59] LABS: BASE EXCESS ARTERIAL 0.1 (-2-2.0); BICARBONATE,ARTERIAL 24.7 meq/L (22.0-26.0); O2 SATURATION ARTERIAL 24.7 % (96.0-97.0)
[2024-07-29] MEDS ORDERED: THIAMINE IV SCH (14:00)
[2024-07-29] MEDS ORDERED: SODIUM CHLORIDE 0.9% IV SCH (14:00)
[2024-07-29] MEDS: Thiamine 500 MG in Sodium Chloride 0.9% 250 ML IV SCH (14:10)
[2024-07-29] MEDS: Folic Acid 50 MG/10 ML MDV IV SCH (14:25)
[2024-07-29 22:08] LABS: TSH 0.981 uIU/mL (0.358-3.74)
[2024-07-30] MEDS: Dextrose 5%-0.45% NaCl 1,000 ML IV SCH (02:17)
[2024-07-30 05:35] LABS: BASOPHILS PERCENT AUTO 0.2 % (0.0-1.0); EOSINOPHILS ABSOLUTE AUTO 0.2 K/mm3 (0.0-0.4); EOSINOPHILS PERCENT AUTO 2.4 % (0.0-6.0); HEMATOCRIT 38.9 % (42.0-52.0); HEMOGLOBIN 11.9 gm/dl (14.0-18.0); IMMATURE GRAN ABSOLUTE AUTO 0.08 K/mm3 (0.00-0.05); IMMATURE GRAN PERCENT AUTO 0.9 % (0.0-0.4); LYMPHOCYTES ABSOLUTE AUTO 1.1 K/mm3 (1.0-4.8); LYMPHOCYTES PERCENT AUTO 12.8 % (24.0-44.0); MEAN CORPUSCULAR HEMOGLOBIN 28.3 pg (28.0-32.0); MEAN CORPUSCULAR HGB CONC 30.6 g/dl (32.0-36.0); MEAN CORPUSCULAR VOLUME 92.6 fl (83.0-99.0); MEAN PLATELET VOLUME 10.2 fl (9.4-12.4); MONOCYTES ABSOLUTE AUTO 0.9 K/mm3 (0.0-0.8); MONOCYTES PERCENT AUTO 10.5 % (0.0-8.0); NEUTROPHILS ABSOLUTE AUTO 6.5 K/mm3 (1.8-7.7); NEUTROPHILS PERCENT AUTO 73.2 % (41.0-71.0); NRBC ABSOLUTE 0.02 (0.00-0.02); NRBC PERCENT 0.2 % (0.0-0.2); PLATELET COUNT,PLT 88 K/mm3 (150-400); WHITE BLOOD CELL COUNT,WBC 8.84 K/mm3 (3.9-11.3)
[2024-07-30 05:56] LABS: A/G RATIO 0.3 (1-2); ALBUMIN 1.5 g/dl (3.4-5.0); ANION GAP 12.5 (5-15); BILIRUBIN TOTAL 0.6 mg/dL (0.2-1.0); BUN/CREATININE RATIO 26.7 (14-18); C-REACTIVE PROTEIN 18.27 mg/dL (<0.30); CALCIUM 9.4 mg/dL (8.5-10.1); CREATININE 1.8 mg/dL (0.7-1.3); EST CRCL DRUG DOSING (CG) 33.48 mL/min; MAGNESIUM 1.6 mg/dL (1.8-2.4); PHOSPHORUS 2.7 mg/dL (2.6-4.7); POTASSIUM,K 3.5 mEq/L (3.5-5.1)
[2024-07-30 06:05] LABS: SLIDE REVIEW ABNORMAL SMEAR
[2024-07-30] MEDS: Dextrose 5% in Water 1,000 ML IV SCH (07:38)
[2024-07-30] MEDS: Magnesium Sulfate 2 GM/50 mL 2 GM in Premix Bag 1 BAG IV ONE (07:42)
[2024-07-30] MEDS ORDERED: PHENobarbitaL sodium 130 MG in Sodium Chloride 0.9% 100 ML IV ONE (10:48)
[2024-07-30] MEDS: PHENobarbital Sodium 65 MG/ML SDV IVPUSH ONE ×2 (11:26→14:58)
[2024-07-30] MEDS: Bumetanide 1 MG/4 ML MDV IVPUSH ONE (12:55)
[2024-07-30] MEDS: Thiamine 500 MG in Sodium Chloride 0.9% 100 ML IV SCH (13:01)
[2024-07-30] MEDS ORDERED: Thiamine 100 MG in Sodium Chloride 0.9% 100 ML IV SCH (13:45)
[2024-07-30] MEDS: Dexamethasone 4 MG/ML SDV IVPUSH ONE (15:31)
[2024-07-30] MEDS: Morphine 4 MG/ML Syringe IVPUSH PRN (15:39)
[2024-07-30 16:55] LABS: O2 SATURATION VENOUS 81.9; PH,VENOUS 7.41 (7.30-7.40)
[2024-07-30 16:56] LABS: BASE EXCESS VENOUS 2.8 (-4.0-2.0); BICARBONATE,VENOUS 27.9 meq/L (22-26)
[2024-07-31] MEDS: Bumetanide 1 MG/4 ML MDV IVPUSH SCH (08:38)
[2024-07-31 10:09] LABS: BASOPHILS ABSOLUTE AUTO 0.1 K/mm3 (0.0-0.2); EOSINOPHILS ABSOLUTE AUTO 0.1 K/mm3 (0.0-0.4); EOSINOPHILS PERCENT AUTO 1.8 % (0.0-6.0); HEMATOCRIT 42.8 % (42.0-52.0); HEMOGLOBIN 12.8 gm/dl (14.0-18.0); IMMATURE GRAN PERCENT AUTO 1.4 % (0.0-0.4); LYMPHOCYTES ABSOLUTE AUTO 0.8 K/mm3 (1.0-4.8); MEAN CORPUSCULAR HEMOGLOBIN 27.7 pg (28.0-32.0); MEAN CORPUSCULAR HGB CONC 29.9 g/dl (32.0-36.0); MEAN CORPUSCULAR VOLUME 92.6 fl (83.0-99.0); MEAN PLATELET VOLUME 11.6 fl (9.4-12.4); MONOCYTES ABSOLUTE AUTO 0.2 K/mm3 (0.0-0.8); MONOCYTES PERCENT AUTO 2.4 % (0.0-8.0); NEUTROPHILS ABSOLUTE AUTO 5.9 K/mm3 (1.8-7.7); NEUTROPHILS PERCENT AUTO 82.4 % (41.0-71.0); PLATELET COUNT,PLT 119 K/mm3 (150-400); RED BLOOD CELL COUNT 4.62 M/mm3 (4.52-5.90); WHITE BLOOD CELL COUNT,WBC 7.12 K/mm3 (3.9-11.3)
[2024-07-31 10:22] LABS: ANION GAP 21.2 (5-15); BILIRUBIN TOTAL 0.6 mg/dL (0.2-1.0); BUN/CREATININE RATIO 28.9 (14-18); CALCIUM 9.7 mg/dL (8.5-10.1); CREATININE 1.9 mg/dL (0.7-1.3); EST CRCL DRUG DOSING (CG) 31.71 mL/min; POTASSIUM,K 4.2 mEq/L (3.5-5.1); PROTEIN TOTAL,TP 6.9 g/dl (6.4-8.2)
[2024-07-31 10:37] LABS: A/G RATIO 0.3 (1-2); ALBUMIN 1.7 g/dl (3.4-5.0)
[2024-07-31 10:59] LABS: SLIDE REVIEW ABNORMAL SMEAR
[2024-07-31] MEDS: Dexamethasone 4 MG/ML 5 ML MDV IVPUSH SCH (14:01)
[2024-07-31] MEDS: Dextrose 5% in Water 1,000 ML IV SCH (14:38)
[2024-07-31] MEDS ORDERED: 50% Dextrose in Water 50 ML Syringe IVPUSH PRN (17:03)
[2024-07-31] MEDS: Insulin Lispro 100 Unit/ML 3 ML KwikPen SUBCUT SCH (17:24)
[2024-07-31] MEDS: Carboxymethylcellulose Sodium 1% Ophth Gel 15 ML Bottle EYEBOTH PRN (18:29)
[2024-07-31] MEDS: Morphine 2 MG/ML SYRINGE IVPUSH PRN (20:16)
[2024-08-01 04:37] LABS: BASOPHILS PERCENT AUTO 0.1 % (0.0-1.0); IMMATURE GRAN ABSOLUTE AUTO 0.07 K/mm3 (0.00-0.05); LYMPHOCYTES ABSOLUTE AUTO 0.9 K/mm3 (1.0-4.8); MEAN CORPUSCULAR HEMOGLOBIN 28.2 pg (28.0-32.0); MEAN CORPUSCULAR HGB CONC 30.8 g/dl (32.0-36.0); MEAN CORPUSCULAR VOLUME 91.5 fl (83.0-99.0); MONOCYTES ABSOLUTE AUTO 0.3 K/mm3 (0.0-0.8); MONOCYTES PERCENT AUTO 4.3 % (0.0-8.0); NEUTROPHILS PERCENT AUTO 82.6 % (41.0-71.0); PLATELET COUNT,PLT 122 K/mm3 (150-400); RED BLOOD CELL COUNT 4.26 M/mm3 (4.52-5.90); WHITE BLOOD CELL COUNT,WBC 7.23 K/mm3 (3.9-11.3)
[2024-08-01 05:22] LABS: A/G RATIO 0.3 (1-2); ALBUMIN 1.5 g/dl (3.4-5.0); ANION GAP 15.8 (5-15); BILIRUBIN TOTAL 0.3 mg/dL (0.2-1.0); C-REACTIVE PROTEIN 8.68 mg/dL (<0.30); CALCIUM 9.3 mg/dL (8.5-10.1); EST CRCL DRUG DOSING (CG) 30.13 mL/min; POTASSIUM,K 3.8 mEq/L (3.5-5.1); PROTEIN TOTAL,TP 6.2 g/dl (6.4-8.2)
[2024-08-01] MEDS ORDERED: Dextrose 5% in Water 1,000 ML IV SCH (07:45)
[2024-08-01] MEDS: Thiamine 200 MG/2 ML MDV IVPUSH SCH (08:36)
[2024-08-01 16:44] LABS: PHOSPHORUS 3.2 mg/dL (2.6-4.7)
[2024-08-01] MEDS: Metoprolol Succinate 50 MG Tab.ER PO ONE (16:46)
[2024-08-01] MEDS: oxyCODONE 5 MG Tab PO SCH (16:49)
[2024-08-01] MEDS: Dextrose 5% in Water 1,000 ML IV SCH (18:46)
[2024-08-01] MEDS: Melatonin 3 MG Tab PO SCH (20:07)
[2024-08-02] MEDS: LORazepam 2 MG/ML SDV IVPUSH PRN (00:36)
[2024-08-02 07:36] LABS: BASOPHILS PERCENT AUTO 0.2 % (0.0-1.0); HEMATOCRIT 37.7 % (42.0-52.0); HEMOGLOBIN 11.5 gm/dl (14.0-18.0); IMMATURE GRAN ABSOLUTE AUTO 0.11 K/mm3 (0.00-0.05); IMMATURE GRAN PERCENT AUTO 1.7 % (0.0-0.4); LYMPHOCYTES ABSOLUTE AUTO 0.8 K/mm3 (1.0-4.8); MEAN CORPUSCULAR HEMOGLOBIN 27.8 pg (28.0-32.0); MEAN CORPUSCULAR HGB CONC 30.5 g/dl (32.0-36.0); MEAN CORPUSCULAR VOLUME 91.3 fl (83.0-99.0); MEAN PLATELET VOLUME 11.4 fl (9.4-12.4); MONOCYTES ABSOLUTE AUTO 0.3 K/mm3 (0.0-0.8); MONOCYTES PERCENT AUTO 4.5 % (0.0-8.0); NEUTROPHILS ABSOLUTE AUTO 5.3 K/mm3 (1.8-7.7); NEUTROPHILS PERCENT AUTO 81.6 % (41.0-71.0); PLATELET COUNT,PLT 125 K/mm3 (150-400); RED BLOOD CELL COUNT 4.13 M/mm3 (4.52-5.90)
[2024-08-02 07:45] LABS: A/G RATIO 0.4 (1-2); ALBUMIN 1.8 g/dl (3.4-5.0); ANION GAP 15.6 (5-15); BILIRUBIN TOTAL 0.3 mg/dL (0.2-1.0); BUN/CREATININE RATIO 40.5 (14-18); CALCIUM 9.1 mg/dL (8.5-10.1); CREATININE 1.9 mg/dL (0.7-1.3); EST CRCL DRUG DOSING (CG) 31.71 mL/min; POTASSIUM,K 3.6 mEq/L (3.5-5.1); PROTEIN TOTAL,TP 6.3 g/dl (6.4-8.2)
[2024-08-02] MEDS: Folic Acid 1 MG Tab PO SCH (09:42)
[2024-08-02] MEDS: Bumetanide 1 MG Tab PO SCH (09:46)
[2024-08-02] MEDS: Folic Acid 50 MG/10 ML MDV IV SCH (09:47)
[2024-08-02] MEDS: Dexamethasone 10 MG/ML SDV IVPUSH SCH (15:21)
[2024-08-02] MEDS: Sennosides/Docusate Sodium 50-8.6 MG Tab PO PRN (17:08)
[2024-08-02] MEDS: Docusate Sodium 100 MG Cap PO SCH (17:08)
[2024-08-03 04:37] LABS: BASOPHILS PERCENT AUTO 0.2 % (0.0-1.0); HEMATOCRIT 40.4 % (42.0-52.0); HEMOGLOBIN 12.2 gm/dl (14.0-18.0); IMMATURE GRAN ABSOLUTE AUTO 0.15 K/mm3 (0.00-0.05); IMMATURE GRAN PERCENT AUTO 2.3 % (0.0-0.4); LYMPHOCYTES ABSOLUTE AUTO 0.8 K/mm3 (1.0-4.8); LYMPHOCYTES PERCENT AUTO 12.5 % (24.0-44.0); MEAN CORPUSCULAR HEMOGLOBIN 27.3 pg (28.0-32.0); MEAN CORPUSCULAR HGB CONC 30.2 g/dl (32.0-36.0); MEAN CORPUSCULAR VOLUME 90.4 fl (83.0-99.0); MEAN PLATELET VOLUME 11.5 fl (9.4-12.4); MONOCYTES ABSOLUTE AUTO 0.5 K/mm3 (0.0-0.8); MONOCYTES PERCENT AUTO 7.7 % (0.0-8.0); NEUTROPHILS ABSOLUTE AUTO 5.2 K/mm3 (1.8-7.7); NEUTROPHILS PERCENT AUTO 77.3 % (41.0-71.0); PLATELET COUNT,PLT 134 K/mm3 (150-400); RED BLOOD CELL COUNT 4.47 M/mm3 (4.52-5.90); WHITE BLOOD CELL COUNT,WBC 6.66 K/mm3 (3.9-11.3)
[2024-08-03 05:01] LABS: A/G RATIO 0.4 (1-2); ALBUMIN 1.9 g/dl (3.4-5.0); ANION GAP 12.6 (5-15); BILIRUBIN TOTAL 0.3 mg/dL (0.2-1.0); BUN/CREATININE RATIO 44.1 (14-18); CALCIUM 8.8 mg/dL (8.5-10.1); CREATININE 1.7 mg/dL (0.7-1.3); EST CRCL DRUG DOSING (CG) 35.44 mL/min; POTASSIUM,K 3.6 mEq/L (3.5-5.1); PROTEIN TOTAL,TP 6.3 g/dl (6.4-8.2)
[2024-08-03] MEDS: Potassium Chloride 20 MEQ Tab.ER PO ONE (09:50)
[2024-08-03] MEDS: Levofloxacin 750 MG Tab PO ONE (13:45)
[2024-08-03] MEDS: Lactulose Soln 10 GM/15 ML 30 ML UD Cup PO SCH (20:04)
[2024-08-04 05:07] LABS: ANION GAP 12.1 (5-15); CALCIUM 9.1 mg/dL (8.5-10.1); CREATININE 1.5 mg/dL (0.7-1.3); EST CRCL DRUG DOSING (CG) 40.17 mL/min; PHOSPHORUS 3.5 mg/dL (2.6-4.7); POTASSIUM,K 4.1 mEq/L (3.5-5.1)
[2024-08-04] MEDS: Linezolid 600 MG Tab PO SCH (12:26)
[2024-08-05] MEDS ORDERED: Levofloxacin 750 MG Tab PO SCH (14:00)
== END 2024-08-04 12:58 | DRG 871 ==
LOC: JD.ED 10:46 → JD.MS 16:41 → JD.ICU 07-27 22:49
PROVIDERS: ADMIT Family Medicine; ATTEND Student in an Organized Health Care Education/Training Program
PROC: 3E03329 Introduction of Other Anti-infective into Peripheral Vein, Percutaneous Approach (ICD-10-PCS; 2024-07-26)
PROC: 5A09357 Assistance with Respiratory Ventilation, Less than 24 Consecutive Hours, Continuous Positive Airway Pressure (ICD-10-PCS; 2024-07-28)
PROC: 4A133R1 Monitoring of Arterial Saturation, Peripheral, Percutaneous Approach (ICD-10-PCS; 2024-07-28)
PROC: 02H633Z Insertion of Infusion Device into Right Atrium, Percutaneous Approach (ICD-10-PCS; principal; 2024-08-01)
PROC: B548ZZA Ultrasonography of Superior Vena Cava, Guidance (ICD-10-PCS; 2024-08-01)
DX: A41.01 Sepsis due to Methicillin susceptible Staphylococcus aureus (principal); I50.33 Acute on chronic diastolic (congestive) heart failure; J15.211 Pneumonia due to Methicillin susceptible Staphylococcus aureus; J69.0 Pneumonitis due to inhalation of food and vomit; J96.21 Acute and chronic respiratory failure with hypoxia; A41.9 Sepsis, unspecified organism; N17.9 Acute kidney failure, unspecified; L03.115 Cellulitis of right lower limb; J98.11 Atelectasis; F11.23 Opioid dependence with withdrawal; F10.131 Alcohol abuse with withdrawal delirium; E87.0 Hyperosmolality and hypernatremia; E51.2 Wernicke's encephalopathy; L03.116 Cellulitis of left lower limb; I13.0 Hypertensive heart and chronic kidney disease with heart failure and stage 1 through stage 4 chronic kidney disease, or unspecified chronic kidney disease; R65.20 Severe sepsis without septic shock; Z66 Do not resuscitate; M19.90 Unspecified osteoarthritis, unspecified site; M54.9 Dorsalgia, unspecified; G89.29 Other chronic pain; Z96.653 Presence of artificial knee joint, bilateral; N18.32 Chronic kidney disease, stage 3b; E86.0 Dehydration; I87.8 Other specified disorders of veins; R53.81 Other malaise; M62.81 Muscle weakness (generalized); K52.9 Noninfective gastroenteritis and colitis, unspecified; I27.20 Pulmonary hypertension, unspecified; F17.203 Nicotine dependence unspecified, with withdrawal; Z90.49 Acquired absence of other specified parts of digestive tract; D64.9 Anemia, unspecified; R74.01 Elevation of levels of liver transaminase levels; Z99.81 Dependence on supplemental oxygen; I50.9 Heart failure, unspecified; N18.9 Chronic kidney disease, unspecified; Z79.899 Other long term (current) drug therapy
CPT/HCPCS: 36415; 71045; 80053; 80306; 80307; 81001; 82550; 83605; 83690; 83735; 83880; 84484; 85025; 85379; 85652; 86140; 87040 ×2; 87077; 87154; 87186; 93005; 96365; 96366; 96375; 99285; C1758; J0692; J3372; J7030; 36569; 36600; 70450; 70450-26; 71250; 71250-26; 74176; 74176-26; 78582; 78582-26; 80048; 80202; 82607; 82803; 82947; 84100; 84295; 84443; 86041; 87641; 92610-GN; 93010; 93306; 93970; 93970-26; 94640; 94660; 94667; 94668; 94760; 94761; 94762; 97110-GP; 97162-GP; 97530-GP; 99223; 99231; 99232; 99233; 99239; A9270-GY; A9539; A9540; C1751; J0690; J1100; J1171; J1644; J2060; J2270; J2560; J3370; J3411; J3475; J3480; J3490; J7050; J7070; U0002